=== PATIENT | female | born 1965 | race Caucasian/White ===

== ENCOUNTER → 2019-12-14 12:52 | Outpatient (CLI) | payer BC, OTHER, SELFPAY ==
--- NOTE | ~2019-12-14 | MM_ITS ---
EXAMINATION: MM screening [facility] BI w janeth HISTORY: Screening mammogram TECHNIQUE: Craniocaudal and mediolateral oblique 3-D tomosynthesis images were obtained and synthetic 2-D images were generated. CAD analysis was submitted and interpreted. COMPARISON: 12/10/2018, 10/26/2017, 03/23/2015 BREAST PARENCHYMAL COMPOSITION: There are scattered areas of fibroglandular density. FINDINGS: There is no evidence of suspicious mass, calcification, or architectural distortion to sugg est malignancy in either breast. There has been no suspicious interval change. IMPRESSION: 1. No mammographic evidence of malignancy. 2. Recommend routine screening mammography in one year. BI-RADS Category 1: Negative Reviewed, dictated and finalized at location A.
== END ==
PROVIDERS: PCP Family Medicine; Visit Provider Physician Assistant
DX: Z12.31 Encounter for screening mammogram for malignant neoplasm of breast (principal)
CPT/HCPCS: 77063; 77067

== ENCOUNTER → 2021-03-01 11:40 | Outpatient (CLI) | payer BC, OTHER, SELFPAY ==
--- NOTE | ~2021-03-01 | MM_ITS ---
EXAMINATION: MM screening [facility] w janeth HISTORY: Screening mammogram TECHNIQUE: Craniocaudal and mediolateral oblique 3-D tomosynthesis images were obtained and synthetic 2-D images were generated. CAD analysis was submitted and interpreted. COMPARISON: 12/14/2019, 12/27/2018, 10/26/2017, 03/13/2015 bilateral digital screening mammogram examinatio ns BREAST PARENCHYMAL COMPOSITION: There are scattered areas of fibroglandular density. FINDINGS: There is no evidence of suspicious mass, calcification, or architectural distortion to sugg est malignancy in either breast. There has been no suspicious interval change. IMPRESSION: 1. No mammographic evidence of malignancy. 2. Recommend routine screening mammography in one year. BI-RADS Category 1: Negative Reviewed, dictated and finalized at location A.
== END ==
PROVIDERS: PCP Physician Assistant; Visit Provider Physician Assistant
DX: Z12.31 Encounter for screening mammogram for malignant neoplasm of breast (principal)
CPT/HCPCS: 77063; 77067

== ENCOUNTER 2021-12-20 08:18 | Outpatient (CLI) | payer BC, SELFPAY ==
--- NOTE | ~2021-12-20 | US_ITS ---
EXAMINATION: US art doppler w press LE BI DATE: 12/20/2021 09:25 INDICATION: Peripheral vascular disease. TECHNIQUE: Segmental pressures and plethysmographic and Doppler waveforms of the brachial and lower e xtremity arteries were obtained. COMPARISON: Ultrasound 06/09/2019 FINDINGS: Right and left brachial artery pressures of 123 mm Hg and 131 mm Hg, respectively, are concordant (no rmal difference <= 30 mmHg). The right high-thigh pressure index is 1.18 (normal > 1.2). The right ankle-brachial index (LEIGH) is 1 .23 (normal >= 0.9-1.0). The right great toe-brachial index (TBI) is 0.82 (normal >= 0.65). Arterial Doppler waveforms are biphasic in common femoral artery, at least triphasic in superficial femoral ar blanca, and biphasic in popliteal artery and at the ankle. The left high-thigh pressure index is 1.18. The left LEIGH is 1.11. The left TBI is 0.50. Arterial Dopp ler waveforms are triphasic in common femoral artery and superficial femoral artery and biphasic in p opliteal artery and at the ankle. IMPRESSION: 1. Stable mildly decreased left TBI and normal left LEIGH, consistent with arterial occlusive disease. Note that LEIGH may be underestimated if arteries are calcified. 2. No significant right-sided arterial occlusive disease. Reviewed, dictated and finalized at location A. IMPRESSION: 1. Stable mildly decreased left TBI and normal left LEIGH, consistent with arteri al occlusive disease. Note that LEIGH may be underestimated if arteries are calci fied. 2. No significant right-sided arterial occlusive disease.
== END 2021-12-20 08:19 | disposition home or self-care (01) ==
PROVIDERS: PCP Physician Assistant; Visit Provider Internal Medicine Cardiovascular Disease
DX: I73.9 Peripheral vascular disease, unspecified (principal)
CPT/HCPCS: 93923

== ENCOUNTER 2022-02-14 12:37 | Outpatient (CLI) | payer BC, SELFPAY ==
--- NOTE | ~2022-02-14 | CT_ITS ---
EXAMINATION: CT abdomen pelvis wo con DATE: 02/14/2022 13:07 INDICATION: Left lower quadrant pain TECHNIQUE: Computed tomography (CT) of the abdomen and pelvis was performed without intravenous contr ast. The dose-length product was 284.75 mGy-cm. Automated exposure control and iterative reconstructi on technique were employed. COMPARISON: None. FINDINGS: Lung bases are unremarkable. Heart size is normal. No significant pleural or pericardial ef fusion. The liver, spleen, pancreas, adrenal glands and kidneys are unremarkable. Gallbladder is pres ent. There is acute sigmoid diverticulitis without evidence for perforation or abscess. No obstructio n. No free air. Mild lumbar spondylosis. No acute osseous abnormality. No significant vascular abnormali ty. No lymphadenopathy. IMPRESSION: 1. Acute uncomplicated sigmoid diverticulitis. Reviewed, dictated and finalized at location B.
== END 2022-02-14 12:38 | disposition home or self-care (01) ==
PROVIDERS: PCP Physician Assistant; Visit Provider Physician Assistant
DX: K57.32 Diverticulitis of large intestine without perforation or abscess without bleeding (principal)
CPT/HCPCS: 74176

== ENCOUNTER 2022-03-02 10:03 | Outpatient (CLI) | payer BC, SELFPAY ==
--- NOTE | ~2022-03-02 | CT_ITS ---
EXAMINATION: CT abdomen pelvis w con DATE: 03/02/2022 10:32 INDICATION: Low abdominal pain. TECHNIQUE: Computed tomography (CT) of the abdomen and pelvis was performed with 100 mL Omnipaque 300 intravenous contrast. Automated exposure control and iterative reconstruction technique were employe d. The dose-length product was 280.08 mGy-cm. COMPARISON: CT abdomen and pelvis 02/14/2022 FINDINGS: The visualized portions of the lung bases demonstrate mild atelectasis. No pleural effusion . The heart size is normal. No pericardial effusion. There is a 1.4 cm cyst in the liver. The gallbla dder, spleen, pancreas, adrenal glands, and kidneys are normal. There are scattered diverticula in th e colon. There is fat stranding around the sigmoid colon, consistent with diverticulitis. The appendi x is normal. There are no dilated loops of bowel. There are no pathologically enlarged lymph nodes. T here is no free intraperitoneal fluid. There is prominent fat in right inguinal canal that may be a h ernia. There is mild lumbar spondylosis. IMPRESSION: 1. Acute sigmoid diverticulitis. No perforation or abscess. Reviewed, dictated and finalized at location A.
== END 2022-03-02 10:04 | disposition home or self-care (01) ==
PROVIDERS: PCP Physician Assistant; Visit Provider Physician Assistant
DX: K57.32 Diverticulitis of large intestine without perforation or abscess without bleeding (principal)
CPT/HCPCS: 74177; Q9967

== ENCOUNTER → 2022-09-27 16:47 | Outpatient (CLI) | payer BC, SELFPAY ==
--- NOTE | ~2022-09-27 | MM_ITS ---
EXAMINATION: MM screening [facility] BI w janeth HISTORY: Screening mammogram TECHNIQUE: Craniocaudal and mediolateral oblique 3-D tomosynthesis images were obtained and synthetic 2-D images were generated. CAD analysis was submitted and interpreted. COMPARISON: 03/01/2021, 12/14/2019, 12/27/2018 bilateral screening mammogram examinations BREAST PARENCHYMAL COMPOSITION: There are scattered areas of fibroglandular density. FINDINGS: There is no evidence of suspicious mass, calcification, or architectural distortion to sugg est malignancy in either breast. There has been no suspicious interval change. IMPRESSION: 1. No mammographic evidence of malignancy. 2. Recommend routine screening mammography in one year. BI-RADS Category 1: Negative Reviewed, dictated and finalized at location B. ER PEELER
== END ==
PROVIDERS: PCP Physician Assistant; Visit Provider Physician Assistant
DX: Z12.31 Encounter for screening mammogram for malignant neoplasm of breast (principal)
CPT/HCPCS: 77063; 77067

== ENCOUNTER 2023-04-19 08:02 | Outpatient (CLI) | payer BC, SELFPAY ==
--- NOTE | ~2023-04-19 | US_ITS ---
EXAMINATION: US art doppler w press LE BI DATE: 04/19/2023 08:48 INDICATION: Peripheral arterial disease. TECHNIQUE: Segmental pressures and plethysmographic and Doppler waveforms of the brachial and lower e xtremity arteries were obtained. COMPARISON: Arterial Doppler and segmental pressures 12/20/21 FINDINGS: Right and left brachial artery pressures of 121 mm Hg and 125 mm Hg, respectively, are concordant (no rmal difference <= 30 mmHg). The right high-thigh pressure index is 1.35 (normal > 1.2). The right ankle-brachial index (LEIGH) is 1 .26 (normal >= 0.9-1.0). The right great toe-brachial index (TBI) is 0.78 (normal >= 0.65). Arterial Doppler waveforms are at least triphasic in common femoral artery and superficial femoral artery and biphasic from popliteal artery to the ankle. The left high-thigh pressure index is 1.26. The left LEIGH is 1.21. The left TBI is 0.62. Arterial Dopp ler waveforms are at least triphasic from common femoral artery to popliteal artery and biphasic at t he ankle. IMPRESSION: 1. Mildly decreased left TBI, normal right TBI, and normal ABIs, consistent with left-sided arterial occlusive disease. Reviewed, dictated and finalized at location A. IMPRESSION: 1. Mildly decreased left TBI, normal right TBI, and normal ABIs, consistent wit h left-sided arterial occlusive disease.
== END 2023-04-19 08:03 | disposition home or self-care (01) ==
PROVIDERS: PCP Physician Assistant; Visit Provider Internal Medicine Cardiovascular Disease
DX: I73.9 Peripheral vascular disease, unspecified (principal)
CPT/HCPCS: 93923

== ENCOUNTER → 2023-11-02 09:43 | Outpatient (CLI) | payer BC, SELFPAY ==
--- NOTE | ~2023-11-02 | MM_ITS ---
EXAMINATION: MM screening [facility] BI w janeth HISTORY: Screening mammogram TECHNIQUE: Craniocaudal and mediolateral oblique 3-D tomosynthesis images were obtained and synthetic 2-D images were generated. CAD analysis was submitted and interpreted. COMPARISON: 09/27/2022, 03/01/2021, 12/14/2019 BREAST PARENCHYMAL COMPOSITION:Not Dense. There are scattered areas of fibroglandular density. FINDINGS: No suspicious mass, calcification, or architectural distortion are identified in either pauline ast to suggest malignancy. There has been no suspicious interval change. IMPRESSION: No mammographic evidence of malignancy. Recommend routine screening mammography in one year. BI-RADS Category 1: Negative Reviewed, dictated and finalized at location . POLISHER
== END ==
PROVIDERS: PCP Nurse Practitioner Obstetrics & Gynecology; Visit Provider Physician Assistant
DX: Z12.31 Encounter for screening mammogram for malignant neoplasm of breast (principal)
CPT/HCPCS: 77063; 77067

== ENCOUNTER 2023-12-22 08:07 | Emergency (ER) | payer BC, SELFPAY ==
[2023-12-22 08:16] VITALS: BP 131/72; PULSE 96; RESP 16; TEMP 36.3; O2SAT 100
--- NOTE | 2023-12-22 08:48 | ED.GENADULT ---
HPI - General Adult General Chief complaint: Eye Problems Stated complaint: Sinus/Left Eye Irritation Source: patient Mode of arrival: ambulatory Limitations: no limitations History of Present Illness HPI narrative: Pt presents for evaluation of sick symptoms. She reports redness to the left eye for last 2 days with associated discharge in matting. She denies any visual disturbance. She wears glasses but not contacts. Some when she works with had similar symptoms as of late. She also reports sinus congestion and mucopurulent discharge from the nares for the past five days. She has retro-orbital pain bilaterally and frontal headache. No fever, chills, nausea or vomiting. She has experienced a cough since July that is mild. No SOB or chest pain. She does not smoke. Related Data Home Medications Medication Instructions Recorded Confirmed mesalamine 1.2 gram tablet,delayed 1.2 g PO QID 12/22/23 12/22/23 release rosuvastatin 20 mg tablet 1 mg PO HS 12/22/23 12/22/23 trazodone 50 mg tablet 100 mg PO HS 12/22/23 12/22/23 venlafaxine 37.5 mg 37.5 mg PO DAILY 12/22/23 12/22/23 capsule,extended release 24 hr Allergies Allergy/AdvReac Type Severity Reaction Status Date / Time No Known Allergies Allergy Unknown Verified 12/22/23 08:10 Review of Systems Review of Systems: CONSTITUTIONAL: Denies fever, chills, or sweats. EYES: Denies visual changes, redness, or discharge. ENT: Reports sinus congestion, pressure behind the eyes, and thick yellow-green drainage from the nares. Reports left eye redness, drainage from the eye and matting. Denies visual disturbance. Denies sore throat and otalgia. CARDIOVASCULAR: Denies chest pain, palpitations, or edema. RESPIRATORY: Denies cough or dyspnea. GASTROINTESTINAL: Denies abdominal pain, nausea, vomiting, or diarrhea. GENITOURINARY: Denies dysuria or hematuria. SKIN: Denies rash or itching. MUSCULOSKELETAL: Denies back pain, joint pain, or myalgia. NEUROLOGIC: Reports headache. Denies numbness, dizziness, or weakness. PSYCHIATRIC: Denies anxiety or depression. [facility] Past Medical History Medical History No pertinent past medical history Surgical History Surgical History No pertinent past surgical history Family History Family History (Updated 12/22/23 @ 09:13 by Pepe Jolly, [facility], ) Mother Family history non-contributory Social History Social History Smoking status: Never smoker Substance use: never Gender identity (if verbalized by the patient): Female Spiritual care concerns: No Exam Narrative: GENERAL: Well-appearing, well-nourished, and in no acute distress. HEAD: Normocephalic, atraumatic. EYES: PERRLA and EOMI. Left conjunctival injection with yellow drainage on lashes ENT: Nares clear, no rhinorrhea or epistaxis. Mucous membranes moist. Oropharynx without tonsillar hypertrophy exudate or other lesions. Bilateral TMs pearly harvey nonbulging NECK: Supple. No adenopathy or masses. No carotid bruits or JVD CHEST: Clear to auscultation. No respiratory distress. No wheezes rales or rhonchi HEART: Regular rate and rhythm. No murmur heard. Normal peripheral pulses. ABDOMEN: Soft, nontender, nondistended, normal active bowel sounds. EXTREMITIES: Normal range of motion. No edema. SKIN: Warm, dry, no rash. NEURO: No focal deficits. Alert and oriented x3. PSYCH: Normal mood and affect. Course Course Emergency Course: This is a 50-year-old female who presented for evaluation of sick symptoms. She has evidence of conjunctivitis on exam. She meets criteria for bacterial sinusitis based upon nature of nasal discharge. Will discharge with erythromycin and Augmentin. Increase hydration. [id number] agents for symptom management. Follow up with
== END 2023-12-22 08:40 | disposition home or self-care (01) ==
PROVIDERS: Emergency Provider Nurse Practitioner; PCP Physician Assistant
DX: J01.90 Acute sinusitis, unspecified (principal); H10.32 Unspecified acute conjunctivitis, left eye
CPT/HCPCS: 99213; G0463

== ENCOUNTER 2025-03-02 14:01 | Outpatient (CLI) | payer BC, SELFPAY ==
--- NOTE | ~2025-03-02 | MM_ITS ---
EXAMINATION: MM screening [facility] BI w janeth HISTORY: Screening mammogram TECHNIQUE: Craniocaudal and mediolateral oblique 3-D tomosynthesis images were obtained and synthetic 2-D images were generated. CAD analysis was submitted and interpreted. COMPARISON: 11/02/2023, 09/27/2022, 03/01/2021 BREAST PARENCHYMAL COMPOSITION:Not Dense. There are scattered areas of fibroglandular density. FINDINGS: No suspicious mass, calcification, or architectural distortion are identified in either pauline ast to suggest malignancy. There has been no suspicious interval change. IMPRESSION: No mammographic evidence of malignancy. Recommend routine screening mammography in one year. BI-RADS Category 1: Negative Reviewed, dictated and finalized at location .
--- NOTE | ~2025-03-02 | XR_ITS ---
CHEST RADIOGRAPH, PA AND LATERAL CLINICAL HISTORY: Pneumonia . COMPARISON: None available TECHNIQUE: PA and lateral views of the chest. FINDINGS The cardiomediastinal silhouette is unremarkable. The lungs are clear. IMPRESSION: No focal infiltrate or effusion. Reviewed, dictated and finalized at location A.
== END 2025-03-02 14:02 | disposition home or self-care (01) ==
LOC: MICIMG 14:03
PROVIDERS: PCP Physician Assistant; Visit Provider Physician Assistant
DX: Z12.31 Encounter for screening mammogram for malignant neoplasm of breast (principal); J18.9 Pneumonia, unspecified organism
CPT/HCPCS: 71046; 77063; 77067